=== PATIENT | male | born 1965 | race Caucasian/White ===

== ENCOUNTER 2016-05-12 13:21 | Emergency (ER) | payer OTHER ==
[2016-05-12 13:28] VITALS: BP 144/98; PULSE 75; RESP 16; TEMP 98.2; O2SAT 96
[2016-05-12] MEDS ORDERED: NS 1,000 ML IV ONE (14:04)
--- NOTE | 2016-05-12 14:06 | EDPHY ---
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 Patient has had multiple metastases as well. He gets MRIs of his head and neck every 6 months. He had 1 done a week ago that was baseline. Also he has had pain every time he swallows that seems to radiate from his throat out to his upper shoulder/trapezius and scapular region. His oncologist in [place] told him to come to the ER to get a MRI to rule out tumor or mass. He states the pain is getting gradually worse each day. He does not have any chest pain or shortness of breath. He denies any pain when he is not swallowing. It is not worsened by movement. He has not had a fever or signs of infection. REVIEW OF SYSTEMS: Constitutional: denies: chills, fever, recent illness, recent injury EENTM: denies: blurred vision, double vision, nose congestion Respiratory: denies: cough, shortness of breath Cardiac: denies: chest pain, irregular heart rate, lightheadedness, palpitations Gastrointestinal/Abdominal: denies: abdominal pain, diarrhea, nausea, vomiting, blood streaked stools Genitourinary: denies: dysuria, frequency, hematuria, pain Musculoskeletal: See HPI Skin: denies: lesions, rash, jaundice, bruising Neurological: denies: headache, numbness, paresthesia, tingling, dizziness, weakness Hematologic/Lymphatic: denies: blood clots, easy bleeding, easy bruising Immunologic/allergic: denies: HIV/AIDS, transplant EXAM: GENERAL: Well-appearing, well-nourished and in no acute distress. HEAD: Mild deformity and postsurgical changes EYES: Pupils equal round and reactive to light, extraocular movements intact, sclera anicteric, conjunctiva are normal. ENT: TMs normal, nares patent, oropharynx clear without exudates. Moist mucous membranes. NECK: Normal range of motion, supple without lymphadenopathy or JVD. LUNGS: Breath sounds clear to auscultation bilaterally and equal. No wheezes rales or rhonchi. HEART: Regular rate and rhythm without murmurs, rubs or gallops. ABDOMEN: Soft, nontender, normoactive bowel sounds. No guarding, no rebound. No masses appreciated. BACK: No CVA tenderness, no spinal tenderness, step-offs or deformities EXTREMITIES: Normal range of motion, no pitting or edema. No clubbing or cyanosis. NEUROLOGICAL: Cranial nerves III through XII grossly intact. Mild deformity of forehead and scarring. Normal speech, normal gait. 5/5 strength, normal movement in all extremities, normal sensation PSYCH: Normal mood, normal affect. SKIN: Warm, dry, normal turgor, no visible rashes or lesions. (Brady Tate) Constitutional: Initial Vital Signs Temperature (C) 36.8 C 05/12/16 13:23 Heart Rate 75 05/12/16 13:23 Respiratory Rate 16 05/12/16 13:23 Blood Pressure 144/98 H 05/12/16 13:23 O2 Sat (%) 96 05/12/16 13:23 O2 Delivery Mode Room Air Allergies/Adverse Reactions: No Known Allergies Allergy (Verified 05/12/16 13:22) Home Medications: Medication Instructions Recorded lamoTRIgine [LamICTAL 100 MG (RX)] 500 mg PO DAILY 12/15/11 Keppra 1000 mg 07/03/13 Sutent 11/26/15 Diazepam [Valium 5 MG (*)] 5 mg PO TID PRN #15 tab 02/13/16 oxyCODONE HCL/ACETAMINOPHEN 1 each PO Q6 #20 tablet 02/13/16 [Percocet 10-325 mg Tablet] oxyCODONE IR [Oxycodone Ir (*)] 10 mg PO BID #20 tab 02/13/16 Medical Decision Making - Diagnostics EKG Interpretation: An EKG obtained and was read and documented in trace view. Please see trace view for full reading and report. Sinus rhythm, nonspecific interventricular conduction delay (Brady Tate) ED Course/Re-evaluation: MRI of the chest. The results of the study are Negative for acute disease specifically no Mets to the brachial plexus, no other Mets visualized on this MRI of the chest. I discussed the results of this study with the radiologist Dr. De León 1639: this patient was signed over to me at 3:00 p.m. shift change to follow up the MRI of the chest to rule out metastatic disease from a neuroblastoma. The patient reported has pain when he swallows every time he swallows to his left trapezius. 1643: Re-evaluation this time patient is resting comfortably no acute distress denies chest pain or shortness of breath. Denies pleuritic pain. I did go over his MRI results with him he is comfortable being discharged. He would like the disc to bring to his cancer physician. He states he gets worsening pain shortness of breath chest pain to return to the ER. He is comfortable being discharged (Luis Hendrickson) I spoke with Dr. Wilkes about the MRI and will order brachial plexus series. Patient is happy about this. 3:20 p.m. care transferred to Dr. Luis Hendrickson, MRI pending. (Brady Tate ) Differential Diagnosis: Partial list of the Differential diagnosis considered include but were not limited to; GERD, tumor, anxiety, and although unlikely based on the history and physical exam, I also considered brachial plexus injury, acute coronary disease. (Brady Tate) - Data Points Laboratory Results: Laboratory Results 05/12/16 14:31 05/12/16 14:31 Medications Given: Discontinued Medications Sodium Chloride (Ns) 1,000 mls @ 0 mls/hr IV ONCE ONE PRN Reason: Wide Open Stop: 05/12/16 14:05 Last Admin: 05/12/16 14:30 Dose: 1,000 mls Departure - Departure Disposition: Home, Routine, Self-Care Clinical Impression: Back pain Qualifiers: Back pain location: thoracic back pain Chronicity: acute Back pain laterality: left Qualifier Code: (M54.6) Pain in thoracic spine Condition: Fair Instructions: Back Pain (ED) Additional Instructions: 1. return emergency room if he develops any worsening symptoms questions or concerns. Referrals: Luis Treviño MD [Primary Care Provider] - As per Instructions
[2016-05-12] MEDS ORDERED: GADOBUTROL 10 ML VIAL IVP ONE (14:23)
[2016-05-12 14:39] LABS: % IMMATURE GRANULYOCYTES 0.3 % (0.0-1.1); ABSOLUTE IMMATURE GRANULOCYTES 0.02 10^3/uL (0.00-0.10); ADD DIFF? NO; ADD MORPH? NO; ADD SCAN? NO; ATYPICAL LYMPHOCYTE FLAG 20 (0-99); FRAGMENT RBC FLAG 0 (0-99); HEMATOCRIT 43.1 % (40.0-51.0); HEMOGLOBIN 15.2 g/dL (13.7-17.5); LEFT SHIFT FLG 0 (0-99); LIPEMIA HEMOLYSIS FLAG 90 (0-99); MEAN CELL HEMOGLOBIN 34.2 pg (27.9-34.1); MEAN CELL HEMOGLOBIN CONCENTR. 35.3 g/dL (32.4-36.7); MEAN CELL VOLUME 96.9 fL (81.5-99.8); MEAN PLATELET VOLUME 9.3 fL (8.7-11.7); PLATELET CLUMPS FLAG 0 (0-99); PLATELET COUNT 322 10^3/uL (150-400); RED BLOOD CELL COUNT 4.45 10^6/uL (4.40-6.38); RED CELL DISTRIBUTION WIDTH 13.7 % (11.5-15.2)
--- NOTE | 2016-05-12 14:46 | CPEKG ---
Heart Rate: 63 RR Interval: 952 P-R Interval: 160 QRSD Interval: 116 QT Interval: 432 QTC Interval: 443 P [place]: 35 QRS [place]: 204 T Wave [place]: 13 EKG Severity - ABNORMAL ECG - EKG Impression: SINUS RHYTHM EKG Impression: NONSPECIFIC INTRAVENTRICULAR CONDUCTION DELAY Electronically Signed By: Brady Tate 12-May-2016 14:56:10
[2016-05-12 15:02] LABS: ANION GAP 12 mEq/L (8-16); CALCIUM 9.3 mg/dL (8.5-10.4); CARBON DIOXIDE 23 mEq/l (22-31); CHLORIDE 105 mEq/L (97-110); CREATININE 0.9 mg/dL (0.7-1.3); GLOMERULAR FILTRATION RATE > 60; GLUCOSE 126 mg/dL (70-100); POTASSIUM 4.2 mEq/L (3.5-5.2); SODIUM 140 mEq/L (134-144)
[2016-05-12 15:14] LABS: TROPONIN I < 0.012 ng/mL (0-0.034)
--- NOTE | 2016-05-12 16:49 | MR ---
MRI chest without and with IV contrast dated May 12, 2016 Indication: Left neck and trapezius pain when swallowing. History of esthesioneuroblastoma. Evaluate brachial plexus. Technique: Multiplanar T1, T2 STIR, and postcontrast T1 with fat suppression obtained through the cer vical spine and upper chest. 10 mL of Gadovist was uneventfully intravenously administered. Findings: Moderate degenerative disk disease at the C6-C7 level results in at least moderate central canal narrowing. The C6-C7 disk is desiccated with a diffuse broad-based posterior disk bulge with as sociated diskogenic Modic changes involving the inferior endplate of C6 and the superior endplate of C7. Bone marrow signal is otherwise normal. No evidence of metastatic disease to the bone. No lymphadenopathy, neck mass, or abnormal edema or enhancement of the brachial plexus. The shoulder girdle muscles have normal signal. No atrophy or edema. Mild to moderate osteoarthritis at the left acromioclavicular joint, type II undersurface curvature of the acromium, and a small spur emanating off the left acromioclavicular joint result in mild impingement upon the left supraspinatu s muscle as it courses through the subacromial space. Impression: 1. No evidence of metastatic disease or abnormal enhancement of the brachial plexus. 2. Degenerative disk disease at C6-C7 results in moderate central canal narrowing. 3. Left acromioclavicular osteoarthritis contributing to impingement upon the left supraspinatus musc le in the subacromial space. Comment: Results were called to Dr. Luis Hendrickson at 4:40 p.m. on May 12, 2016.
== END 2016-05-12 17:00 | disposition home or self-care (01) ==
DX: M54.6 Pain in thoracic spine (principal)
CPT/HCPCS: A9585

== ENCOUNTER 2017-11-10 08:15 | Inpatient (IN) | payer OTHER ==
--- NOTE | 2017-11-10 08:29 | EDPHY ---
H & P Time Seen by Provider: 11/10/17 08:29 HPI/ROS: CHIEF COMPLAINT: Headache HISTORY OF PRESENT ILLNESS: Patient has a complicated brain history with for sections of an Esthysioneuroblastoma, last saw his surgeon in [facility] 3 weeks ago with an MRI that showed his tumor was stable. He also has some lower back pain and had an epidural injection by Dr. Johnson 1 week ago on Wednesday. Wednesday day he was checking his e-mail around 11:00 a.m. Started getting a left-sided headache which persists until today. He quit eating and has some nausea but no actual vomiting. He says is worse when he bends over or when he coughs, and a little bit worse lying down and often better standing up. He says it is"consistent"in its moderate pain. Not associated with fever or chills or visual symptoms. REVIEW OF SYSTEMS: Eye: no change in vision ENT: no sore throat Cardiac: no chest pain or syncope Pulmonary: no cough or SOB Abdomen: No abdominal pain Musculoskeletal: HPI Skin: no rash Neuro: HPI, denies vertigo Constitutional: no fever : no urinary symptoms A comprehensive 10 point review of systems is otherwise negative aside from elements mentioned in the history of present illness. PAST MEDICAL HISTORY: Includes brain tumor as documented above, seizure disorder, sciatica Social history: Primary care is Dr. Treviño at [facility] General Appearance: Alert and conversant, cooperative. Eyes: No scleral icterus. Pupils equal reactive extraocular motion intact. ENT, Mouth: Normal mucous membranes. No facial swelling and normal tympanic membranes. Respiratory: Normal respiratory effort, breath sounds equal, lungs are clear to auscultation. Cardiovascular: Regular rate and rhythm. Gastrointestinal: Abdomen is soft and non tender. Neurological: Alert, face symmetric, normal motor and sensory in extremities. Normal pzuxea-ac-xdpy and no pronator drift, speech fluent. Ambulatory. Skin: Warm and dry, no rashes. The lumbar epidural injection site is clean dry and intact. Musculoskeletal: No peripheral edema. Psychiatric: Not agitated. Emergency Department course/MDM: Patient is concerned that "something ruptured in my brain", CT head discussed and consented to evaluate for possible hemorrhage especially in his known tumor. He had an MRI 3 weeks ago that was stable and I think that severe growth of the tumor or change in mass effect since then would be unlikely. The patient's headache is described by him is not positional, in fact might be a little bit worse lying down. This would not be typical for a post spinal headache. Reglan 10 mg IV, and head CT. If negative head CT, patient declined stronger pain medication. 1031: hemorrhage 3cm, not in previous neurosurgical operative bed, [place]. Results discussed with the patient at this time. He is still alert and fluent speech. Per Dr. Lees admit to step-down, DDAVP if has taking any anti-platelet agents in the past week. Patient has taken several ibuprofen in the past week. Discussed with Jaydon in pharmacy for dosing at 1103. Clinically stable. Smoking Status: Never smoked Constitutional: Initial Vital Signs Temperature (C) 36.8 C 11/10/17 08:19 Heart Rate 84 11/10/17 08:19 Respiratory Rate 18 11/10/17 08:19 Blood Pressure 136/97 H 11/10/17 08:19 O2 Sat (%) 95 11/10/17 08:19 O2 Delivery Mode Room Air Allergies/Adverse Reactions: No Known Allergies Allergy (Verified 11/10/17 08:19) Home Medications: Medication Instructions Recorded Sunitinib Malate [Sutent] 50 mg PO DAILY 11/10/17 lamoTRIgine [LamICTAL XR] 300 mg PO BID 11/10/17 levETIRAcetam [Keppra 500 mg (*)] 500 mg PO BID 11/10/17 Medical Decision Making - Diagnostics Imaging Results: Imaging Impressions Head CT 11/10/17 08:42 Impression: New left frontal parenchymal hemorrhage with extension into the left lateral ventricular system which demonstrates very early hydrocephalus. Results called to Dr. Dk Chang at 10:30 AM General information for patients regarding this examination can be found at [email or web address]. If you have questions or comments about this report, please contact me at (hospital) or [phone] (cell). Imaging: Discussed imaging studies w/ fisher scallop Radiologist, I viewed and interpreted images myself Differential Diagnosis: Differential diagnosis considered for headache including but not limited to vascular dissection, intracranial bleeding, mass effect, subarachnoid hemorrhage , migraine headache, tension headache and infectious causes such as meningitis, pharyngitis and sinusitis. Consult/Admit Bed Type: Dr. V for neurosurgery 1043 Critical Care Time: Critical care time spent by me, Dr. Chang, exclusively with the care of this patient was 30 minutes, exclusive of PA or INFANT NANNY time and exclusive of separate procedures. The organ system at risk was neurologic and I ordered IV DDAVP, multiple diagnostics, serial exams, discussion with Neurosurgery consult to stabilize the patient and prevent worsening of the patient's condition. - Data Points Medications Given: Discontinued Medications Desmopressin Acetate 34 mcg/ (Sodium Chloride) 58.5 mls @ 100 mls/hr IV ONCE ONE Stop: 11/10/17 11:38 Last Admin: 11/10/17 11:34 Dose: 58.5 mls Metoclopramide HCl (Reglan Injection) 10 mg IVP EDNOW ONE Stop: 11/10/17 08:43 Last Admin: 11/10/17 08:59 Dose: 10 mg Departure - Departure Disposition: [facility] Inpatient Acute Clinical Impression: Headache Qualifiers: Headache type: unspecified Headache chronicity pattern: acute headache Intractability: not intractable Qualified Code(s): R51 - Headache Condition: Serious
[2017-11-10] MEDS ORDERED: METOCLOPRAMIDE 10 MG/2 ML VIAL IVP ONE (08:42)
[2017-11-10] MEDS ORDERED: ONDANSETRON DISINTEGRATING 4 MG TAB PO PRN (10:58)
[2017-11-10] MEDS ORDERED: oxyCODONE IR 5 MG TAB PO PRN (10:58)
[2017-11-10] MEDS ORDERED: BISACODYL 10 MG SUPP PR PRN (10:58)
[2017-11-10] MEDS ORDERED: METOCLOPRAMIDE 10 MG/2 ML VIAL IVP PRN (10:58)
[2017-11-10] MEDS ORDERED: ONDANSETRON 4 MG/2 ML VIAL IVP PRN (10:58)
[2017-11-10] MEDS ORDERED: ACETAMINOPHEN 325 MG TAB PO PRN (10:58)
[2017-11-10] MEDS ORDERED: LACTULOSE 20 GM/30 ML UDCUP PO PRN (10:58)
[2017-11-10] MEDS ORDERED: MAGNESIUM HYDROXIDE 30 ML UDCUP PO PRN (10:58)
[2017-11-10] MEDS ORDERED: POLYETHYLENE GLYCOL 3350 17 GM PKT PO PRN (10:58)
[2017-11-10] MEDS ORDERED: NS 1,000 ML IV SCH (11:00)
[2017-11-10 11:01] LABS: PLATELET COUNT 251 10^3/uL (150-400)
[2017-11-10] MEDS ORDERED: NS IV ONE (11:03)
[2017-11-10] MEDS ORDERED: DESMOPRESSIN ACETATE IV ONE (11:03)
[2017-11-10 11:16] LABS: INR 0.88 (0.83-1.16); PROTIME(PATIENT) 12.2 SEC (12.0-15.0)
--- NOTE | 2017-11-10 18:56 | GCON ---
[f rep st] CONSULTATION NEUROSURGICAL CONSULT DATE OF CONSULTATION: 11/10/2017 CHIEF COMPLAINT: The patient is a 52-year-old man with headaches. HISTORY OF PRESENT ILLNESS: The patient has history of cranial esthesioneuroblastoma in his brain fo r which he has undergone 4 surgeries and also has history of seizures. He was in his normal state of health recently; until last Wednesday, he was undergoing an epidural steroid injection under the care o shalonda Galvan when she apparently "hit a nerve" according to the patient and his blood pressure florina t through the roof. He developed a headache at that time that has not resolved, and he presented to the emergency room today at [facility] where head CT demonstrated an intracranial hemorrha ge measuring approximately 3 cm. He presents now for neurosurgical consultation. PAST MEDICAL AND SURGICAL HISTORY: Cranial esthesioneuroblastoma status post 4 prior brain surgeries , history of seizures, history of back problems status post surgery and injections and other treatmen t. MEDICATIONS ON ADMISSION: 1. Lamictal. 2. Keppra. 3. Chemotherapy. DRUG ALLERGIES: None known. FAMILY HISTORY: Noncontributory. SOCIAL HISTORY: The patient has been for 14 years. His is present. He does not drink, but he smokes marijuana every day. NEUROLOGIC EXAMINATION: The patient is awake, alert, and oriented x4. His speech is fluent and appr opriate. His extraocular movements are intact. He has full strength throughout with normal sensatio n reflexes. REVIEW OF SYSTEMS: A 15-point review of systems was performed and was all negative with the exceptio n of headaches. DIAGNOSTIC STUDIES: CT scan of the brain was reviewed and demonstrates an approximately 3 cm hemorrh age in the left frontal area extending into the intraventricular area. There is no significant hydro cephalus or mass effect. IMPRESSION/RECOMMENDATIONS: This is a 52-year-old man with history of cranial esthesioneuroblastoma who recently underwent epidural steroid injection where the needle hit a nerve and his blood pressure went up and it appears that he hemorrhaged into his brain at that time. I think that the bleed will just resolve on its own. There is no neurosurgical intervention indicated at this time. We keep an eye on him overnight and probably send him home tomorrow. /[id number]/MODL
[2017-11-10] MEDS: SENNOSIDES/DOCUSATE SODIUM TAB PO SCH (23:19)
--- NOTE | 2017-11-11 07:27 | NEUSURGPN ---
Assessment/Plan: Assessment: 52 yo male that is admitted to us with a small left frontal hemorrhage with hx of a esthesioneuroblastoma Plan: -ICB: pt seen by Dr Lees and images reviewed-no further CTs needed at this time -pt states mild SALMERON at this time otherwise rested fine -AAO x 3 -PT/OT/ST to see today -neuro intact -plan for therapies to see today and then dc if passes -pt seen and discussed with Dr Lees -no new concerns per RN -call with any questions or concerns -pt understands and agrees Subjective: Awake and alert. NAD. Eating/drinking and voiding. No f/c/n/v/d. No neck/ chest/abd or gu complaints. Objective: AAO x 3, PERRLA/EOMI no droop CN 2-12 grossly intact +lt touch 5/5 BUE/BLE = Neuro Check Frequency: per routine Urinary Catheter in Place: No - Physician Discussed Patient with : Carol Patient Seen by : Carol Neurosurgery Physical Exam - Vitals, I&O, Labs I and O 11/10/17 11/11/17 11/12/17 05:59 05:59 05:59 Intake Total 750 Balance 750 Weight 115.6 kg Intake: Oral (ml) 750 Other: Intake Quantity Yes Sufficient Number of Voids Toilet 3 Vital Signs Temp Pulse Resp BP Pulse Ox 37.0 C 60 18 128/84 H 95 11/10/17 20:00 11/11/17 04:00 11/11/17 04:00 11/11/17 04:00 11/11/17 04:00 ICD10 Worksheet Patient Problems: Problems Problem Status Onset Headache Acute
[2017-11-11] MEDS: SENNOSIDES/DOCUSATE SODIUM TAB PO SCH (08:46)
[2017-11-11] MEDS ORDERED: levETIRAcetam 500 MG TAB PO SCH (09:00)
[2017-11-11] MEDS ORDERED: (Lamotrigine [Lamictal Xr] 300 MG) PO SCH (09:00)
--- NOTE | 2017-11-11 10:12 | PDMN ---
Medical Necessity Medical necessity: [facility] M185 headache: cerebral bleeding monitoring. PT with sm. L frontal hemorrhage following epdural injection that "hit a nerve" with resultant sig. elevated BP. ICH measuring approx. 3 cm. pt with hx of cranial esthesioneuroblastoma S/P 4 brain sgy, hx of Sz, further monitoring needed
[2017-11-11 11:56] VITALS: BP 143/80
--- NOTE | 2017-11-11 16:30 | ASMTLACE ---
LACE Length of stay for Answers: 1 day current admission Acuity / Level of Answers: Yes Care: Did the patient have an inpatient admission? Comorbidities - select Answers: Any tumor (including all that apply lymphoma or leukemia) # of Emergency department Answers: 1-2 visits in the last 6 months Score: 7 Date Signed: 11/11/2017 04:30 PM Electronically Signed By:Nirmala Greenberg
--- NOTE | 2017-11-11 16:37 | ASDISCHSUM ---
Discharge Information Plan Status:Home with No Needs Medically Cleared to Leave: Discharge Date:11/11/2017 12:56 PM CM D/C Disposition:Home, Routine, Self-Care ADT D/C Disposition:Home, Routine, Self-Care Projected Discharge Date:11/11/2017 12:56 PM Transportation at D/C:Family Discharge Delay Reason: Follow-Up Date:11/11/2017 12:56 PM Discharge Slot: Final Diagnosis: Placement Information Patient Contact Information Contact Name:ABDOUL Relationship: Address:[address] City:[place] Alternate Phone: [facility]/Zip Code:[place] [address] Email: Financial Information Financial Class:HMO and PPO Plans Primary Plan Desc:[employer] Primary Plan Number:[id number] Secondary Plan Desc: Secondary Plan Number: Assessment Information LACE LACE Length of stay for Answers: 1 day current admission Acuity / Level of Answers: Yes Care: Did the patient have an inpatient admission? Comorbidities - select Answers: Any tumor (including all that apply lymphoma or leukemia) # of Emergency department Answers: 1-2 visits in the last 6 months Score: 7 Date Signed: 11/11/2017 04:30 PM Electronically Signed By:Nirmala Greenberg Intervention Information
--- NOTE | 2017-11-11 16:39 | ASMTDCNOTE ---
Case Management Discharge Discharge Order Complete? Answers: Yes Patient to Obtain Answers: Independently Medications Transportation Arranged Answers: Family/Friends Discharge Comments Notes: Pt D/C'ed home independently with no identified CM needs. Date Signed: 11/11/2017 04:38 PM Electronically Signed By:Nirmala Greenberg
--- NOTE | 2017-11-30 09:52 | GDS ---
[f rep st] DISCHARGE SUMMARY PRIMARY DIAGNOSIS: Headache with patient, a 52-year-old male, with cranial neuroblastoma who underwe nt an epidural steroid injection. OPERATION/PROCEDURES: Admission to the hospital. CT scan of the head was obtained on 11/10/2017 nohemi t showed a new left frontal parenchymal hemorrhage with extension in the left lateral ventricular sys tem which demonstrates very early hydrocephalus noted. HOSPITAL COURSE: The patient is a 52-year-old male who was seen by Dr. Jose Medina. He has a history of cranial esthesioneuroblastoma for which he has undergone 4 surgeries. He also has a know n history of seizures. He was in a normal state of health prior to his admission. He underwent an e pidural steroid injection and apparently hit a nerve according to the patient and his blood pressure shot through the roof. He developed a headache that had not resolved. He came to the emergency depa rtment. A CT scan of the head was obtained that showed a small intracranial hemorrhage measuring 3 c m. The patient was admitted overnight and met criteria for discharge the following day. He worked w ith PT and OT. His symptoms had improved and was agreeable for discharge. Therapies had cleared him . CONSULT: None. COMPLICATIONS: None. DISCHARGE CONDITION: Stable and improved. DISCHARGE INSTRUCTIONS: Standard discharge instructions given to patient following intracranial blee d. He will follow up with us in the office for recheck in 2 to 4 weeks. All questions and concerns were answered. Patient understands and agrees. /[id number]/MODL
== END 2017-11-11 12:56 | disposition home or self-care (01) | DRG 921 ==
LOC: F2N 14:10
PROVIDERS: ADMIT Neurological Surgery; ATTEND Neurological Surgery
DX: G97.51 Postprocedural hemorrhage of a nervous system organ or structure following a nervous system procedure (principal); Z85.841 Personal history of malignant neoplasm of brain
CPT/HCPCS: 92523-GN; 96374; 97162-GP; 97165-GO; J2597; J2765